=== PATIENT | female | born 1960 ===

== ENCOUNTER 2016-11-16 09:37 | Day surgery (SDC) | payer SELFPAY ==
[2016-11-16 10:15] VITALS: BMI 33.8
[2016-11-16] MEDS ORDERED: Midazolam 2 MG/2 ML VIAL ONE (10:51)
[2016-11-16] MEDS ORDERED: Lidocaine 1% Inj (20ml) ONE (10:59)
[2016-11-16 11:11] VITALS: O2SAT 100
[2016-11-16] MEDS ORDERED: Lactated Ringer's 1,000 ML IV SCH (11:45)
--- NOTE | 2016-11-16 12:29 | CP.SDSHP ---
Same Day Surgery H & P - History Proposed Procedure: Submandibular mass biopsy Pre-Op Diagnosis: Submandibular mass - Allergies Allergies: Allergies ciprofloxacin [From Cipro] Allergy (Verified 11/16/16 10:15) SHORTNESS OF BREATH ciprofloxacin HCl [From Cipro] Allergy (Verified 11/16/16 10:15) SHORTNESS OF BREATH Quinolones Allergy (Verified 07/08/16 13:03) SWELLING - Physical Exam Vital Signs: Vital Signs 11/16/16 11:08 Temperature 97 F L Pulse Rate 84 Respiratory 16 Rate Blood Pressure 157/94 H O2 Sat by Pulse 100 Oximetry Short Stay Discharge - Short Stay Discharge Admitting Diagnosis/Reason for Visit: SUBMANDIBULAR MASS Disposition: HOME/ ROUTINE Referrals: Eloise Alas MD [Primary Care Provider] -
--- NOTE | 2016-11-16 12:34 | PCM.SURG1 ---
Surgeon's Initial Post Op Note - Surgeon's Notes Surgeon: Erendira Passenger Service Agent: None Type of Anesthesia: IV Sedation, Local Pre-Operative Diagnosis: Right submandibular mass. Operative Findings: Right submandibular mass. Post-Operative Diagnosis: Right submandibular mass. Operation Performed: Right submandibular mass core biopsy. Specimen/Specimens Removed: Right submandibular mass core biopsy samples. Estimated Blood Loss: EBL {In ML}: 1 Date of Surgery/Procedure: 11/16/16 Time of Surgery/Procedure: 11:00
--- NOTE | 2016-11-16 13:43 | US ---
Right sub mandibular mass biopsy History: Right submandibular mass. Comparison: CT of the neck from 10/28/2016. Anesthesia: Local lidocaine. Moderate sedation provided by attending anesthesiologist. Procedure and findings: The procedure was explained to the patient in detail including relative risks and benefits, using a key punch teacher. Informed consent was obtained. The right neck region was prepped and draped in the usual sterile techniques. 1 percent lidocaine was used to anesthetize the skin and the underlying subcutaneous tissue. Initial ultrasound evaluation demonstrated a mildly dilated right internal jugular vein. This was seen in the prior CT. Additionally, there is a rounded heterogeneous mass in the anterior aspect of the right neck. A 17 gauge coaxial needle was introduced into the right neck mass. The inner stylet was removed. The spring-loaded biopsy system was then introduced and multiple 18 gauge core biopsy samples of the mass were obtained. The biopsy gun and the introducer needle were removed. Post biopsy images demonstrated no evidence of hematoma. The patient tolerated the procedure well. Impression: Successful ultrasound-guided core biopsy of the right neck mass.
[2016-11-17 16:01] VITALS: RESP 18
[2016-11-17 16:02] VITALS: BP 132/76; PULSE 76; TEMP 97.4
== END 2016-11-16 14:20 | disposition home or self-care (01) ==
LOC: H.OPSURG 09:37
PROVIDERS: ATTEND Specialist
DX: R22.1 Localized swelling, mass and lump, neck (principal); Z88.1 Allergy status to other antibiotic agents

== ENCOUNTER 2016-12-21 06:17 | Day surgery (SDC) | payer SELFPAY ==
[2016-12-15 09:17] VITALS: BMI 36.1
[2016-12-15 11:42] VITALS: RESP 18
[2016-12-21] MEDS ORDERED: Bupivacaine 0.5% Inj(30mL) ONE (07:10)
[2016-12-21] MEDS ORDERED: Lidocaine 2% w Epi 1:100,000 Inj IJ ONE (07:11)
[2016-12-21] MEDS ORDERED: Propofol 10 mg/ml Inj (20 ML) ONE (07:42)
[2016-12-21] MEDS ORDERED: Midazolam 2 MG/2 ML VIAL ONE (07:43)
[2016-12-21] MEDS ORDERED: Rocuronium 10 mg/ml (5 ml) ONE (07:43)
[2016-12-21] MEDS ORDERED: Neostigmine Methylsulfate 3mg/3ml Syringe IV ONE (07:44)
[2016-12-21] MEDS ORDERED: Succinylcholine 200 mg/10 ml Inj IV ONE (07:49)
--- NOTE | 2016-12-21 07:54 | CP.SDSHP ---
Same Day Surgery H & P - History Proposed Procedure: Excision Salivary gland Pre-Op Diagnosis: Salivary gland tumor - Previous Medical/Surgical History Cardiac: Hypertension Endocrine/Metabolic: Diabetes - Allergies Allergies: Allergies ciprofloxacin [From Cipro] Allergy (Verified 11/16/16 10:15) SHORTNESS OF BREATH ciprofloxacin HCl [From Cipro] Allergy (Verified 11/16/16 10:15) SHORTNESS OF BREATH Quinolones Allergy (Verified 07/08/16 13:03) SWELLING - Current Medications Current Medications: Valsartan, Carvedilol, Metformin, Omeprazole - Physical Exam General Appearance: NAD, Well nourished Vital Signs: Vital Signs 12/21/16 12/21/16 07:10 07:16 Temperature 98.2 F Pulse Rate 73 73 Respiratory 18 Rate Blood Pressure 143/72 O2 Sat by Pulse 100 Oximetry Mental Status: Alert & Oriented x3 Neuro: WNL Heart: WNL Lungs: WNL GI: WNL - Impression Impression: 55yo F here for excision of salivary gland Pt. Evaluated Today:Candidate for Anesthesia & Procedure: Yes - Date & Time Date: 12/21/16 Time: 07:54 Short Stay Discharge - Short Stay Discharge Admitting Diagnosis/Reason for Visit: D11.9 Disposition: HOME/ ROUTINE Medications: oxyCODONE/Acetaminophen [Percocet 5/325 mg Tab] 1 ea PO Q6H PRN #30 tab PRN Reason: Pain, Moderate (4-7) Referrals: Jair Stone MD [Primary Care Provider] - Follow-up: 1 week Additional Instructions (Diet, Activity): You may remove dressing tomorrow and you may shower, keep steri strips in place. You may resume regular diet and light activities. F/U with Dr. Hameed in office in 1week.
[2016-12-21] MEDS ORDERED: Lactated Ringer's 1,000 ML IV ONE (08:10)
[2016-12-21] MEDS ORDERED: Lactated Ringer's 500 ML IV ONE (09:40)
[2016-12-21] MEDS ORDERED: Lactated Ringer's 1,000 ML IV SCH (10:34)
[2016-12-21] MEDS ORDERED: HYDROmorphone 0.5 mg/0.5 ml ISec IVP PRN (10:35)
--- NOTE | 2016-12-21 12:25 | PCM.SURG1 ---
Surgeon's Initial Post Op Note - Surgeon's Notes Surgeon: Dr. Hameed Yard Cleaner: Dr. Montana PGY2; Dr Mcintosh PGY3 Type of Anesthesia: General Endo Anesthesia Administered By: Ainsley Pre-Operative Diagnosis: Salivary gland tumor (right) Operative Findings: same Post-Operative Diagnosis: same Operation Performed: Excision of Salivary gland (right) Specimen/Specimens Removed: submandibular gland Estimated Blood Loss: EBL {In ML}: 10 Blood Products Given: N/A Drains Used: No Drains Post-Op Condition: Good Date of Surgery/Procedure: 12/21/16 Time of Surgery/Procedure: 08:00
[2016-12-21 14:31] VITALS: O2SAT 95
[2016-12-21 17:45] VITALS: BP 147/81; PULSE 85; TEMP 98.1
--- NOTE | 2016-12-22 10:55 | OP ---
PROCEDURE DATE: 12/21/2016 OPERATIVE SUMMARY SURGEON: Maldonado Hameed MD. MORNING NEWS ANCHOR: Dr. Montana and Dr. Mcintosh. ANESTHESIA: General, Dr. Schmitz. 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 POSTOPERATIVE DIAGNOSIS: Right submandibular gland pleomorphic adenoma. PROCEDURE: Excision of right mandibular gland. DESCRIPTION OF OPERATION: With the patient in the supine position under adequate general anesthesia, the right face, skin, and upper neck were prepped and draped in the usual sterile manner. The patie nt had undergone a previous parotidectomy on the right side, and a 1 inch mass was palpable just ante rior to the anterior right branch of the parotid scar. An incision was continued parallel to the man dible continuing anteriorly from the previous scar, taken down through the platysmal layer. Upon pas sing through the platysmal plane, the salivary gland was identified with the mass at its most postero lateral aspect, and this was sharply and bluntly dissected away from the surrounding areolar tissue w ith the full thickness of the gland being from the surrounding tissue. The dissection cont inued anteriorly and medially with small attachments being either cauterized or clamped, divided, and ligated with 4-0 Vicryl ties until a margin of normal salivary gland was encountered a centimeter an terior to the palpable mass. At this point, the gland was clamped and divided. The remaining glandu lar tissue was suture-ligated with 3-0 Vicryl sutures, and the specimen was removed. The operative s ite was examined for hemostasis, and the incision was closed in 2 layers with the platysmal layer damien roximated with 3-0 Vicryl sutures, and subcuticular suture of 4-0 Monocryl and Steri-Strips. Dry tramaine rile dressing was applied with enough bulk to replace the space, and the patient tolerated the p rocedure well and transferred to the recovery room in stable condition. Estimated blood loss for the procedure was 10 mL. Maldonado Hameed MD cc: 58 TT: 12/22/2016 10:55:17 jn
== END 2016-12-21 17:45 | disposition home or self-care (01) ==
LOC: H.OPSURG 06:17
PROVIDERS: ATTEND Specialist
DX: D11.9 Benign neoplasm of major salivary gland, unspecified (principal); E11.9 Type 2 diabetes mellitus without complications; I10 Essential (primary) hypertension

== ENCOUNTER 2017-12-08 09:04 | Emergency (ER) | payer SELFPAY ==
[2017-12-08 09:11] VITALS: BMI 32.4
[2017-12-08 09:13] VITALS: BP 115/76; PULSE 89; RESP 18; TEMP 98.6; O2SAT 98
[2017-12-08] MEDS ORDERED: Sodium Chloride 0.9% 1,000 ML IV STA (09:42)
--- NOTE | 2017-12-08 09:47 | ED PDOC ---
HPI: Abdomen Time Seen by Provider: 12/08/17 09:21 Chief Complaint (Nursing): GI Problem Chief Complaint (Provider): Abdominal pain History Per: Patient History/Exam Limitations: no limitations Onset/Duration Of Symptoms: Days (x1) Current Symptoms Are (Timing): Still Present Location Of Pain/Discomfort: Diffuse Quality Of Discomfort: Cramping Associated Symptoms: Nausea, Vomiting, Diarrhea Additional Complaint(s): Karen Cast is a 56 year old female, with a past medical history of HTN and diabetes, who presents to the emergency department complaining of crampy abdominal pain associated with nausea, vomiting and diarrhea onset since yesterday. No headache and dizziness. Patient reports vomiting and diarrhea is non bloody, and states symptoms began after she ate a sandwich yesterday. Patient's daughter was seen in the ED yesterday for the same symptoms. Patient has started taking flagyl for symptoms and states she got the medications from her daughter who is a doctor in [facility]. She denies any fever, chills , chest pain, shortness of breath, numbness, tingling or urinary symptoms. No further medical complaints. PMD: Aubrey Tilley Past Medical History Reviewed: Historical Data, Nursing Documentation Vital Signs: Last Vital Signs Temp 98.6 F 12/08/17 09:12 Pulse 89 12/08/17 09:12 Resp 18 12/08/17 09:12 BP 115/76 12/08/17 09:12 Pulse Ox 98 12/08/17 09:57 - Medical History PMH: Diabetes, HTN - Surgical History Surgical History: No Surg Hx - Family History Family History: States: Unknown Family Hx - Home Medications Home Medications: Ambulatory Orders Medication Instructions Recorded Carvedilol [Coreg] 6.25 mg PO DAILY 11/16/16 Furosemide [Lasix] 40 mg PO PRN PRN 11/16/16 Pantoprazole [Protonix EC Tab] 40 mg PO DAILY 11/16/16 Valsartan/Hydrochlorothiazide 1 tab PO DAILY 11/16/16 [Valsartan-Hctz 320-12.5 mg Tab] metFORMIN [glucOPHAGE] 500 mg PO BID 11/16/16 Glucosa [place] 2Kcl/Chondroitin [place]itting[place] 1 each PO DAILY 12/21/16 [Glucosamine & Chondroitin Cap] Meloxicam [Mobic] 15 mg PO PRN PRN 12/21/16 Multivitamin [One Daily] 1 each PO DAILY 12/21/16 oxyCODONE/Acetaminophen [Percocet 1 ea PO Q6H PRN #30 tab 12/21/16 5/325 mg Tab] oxyCODONE/Acetaminophen [Percocet 1 tab PO Q4 PRN 12/21/16 5/325 mg Tab] - Allergies Allergies/Adverse Reactions: Allergies Allergy/AdvReac Type Severity Reaction Status Date / Time ciprofloxacin [From Cipro] Allergy SHORTNESS Verified 12/08/17 09:21 OF BREATH ciprofloxacin HCl Allergy SHORTNESS Verified 12/08/17 09:21 [From Cipro] OF BREATH Quinolones Allergy SWELLING Verified 12/08/17 09:21 Review of Systems ROS Statement: Except As Marked, All Systems Reviewed And Found Negative Constitutional: Negative for: Fever, Chills Cardiovascular: Negative for: Chest Pain Respiratory: Negative for: Shortness of Breath Gastrointestinal: Positive for: Nausea, Vomiting (non bloody), Abdominal Pain, Diarrhea (non bloody) Genitourinary Female: Negative for: Dysuria, Frequency, Incontinence, Hematuria Neurological: Negative for: Numbness (tingling) Physical Exam - Reviewed Nursing Documentation Reviewed: Yes Vital Signs Reviewed: Yes - Physical Exam Appears: Positive for: Non-toxic, No Acute Distress Head Exam: Positive for: ATRAUMATIC, NORMAL INSPECTION, NORMOCEPHALIC Skin: Positive for: Normal Color, Warm, Dry Eye Exam: Positive for: Normal appearance, EOMI, PERRL Neck: Positive for: Painless ROM Cardiovascular/Chest: Positive for: Regular Rate, Rhythm. Negative for: Murmur Respiratory: Positive for: Normal Breath Sounds. Negative for: Respiratory Distress Gastrointestinal/Abdominal: Positive for: Tenderness (mild tenderness diffused) Back: Positive for: Normal Inspection. Negative for: L CVA Tenderness, R CVA Tenderness, Vertebral Tenderness Extremity: Positive for: Normal ROM (all extremities). Negative for: Tenderness , Deformity, Swelling Neurologic/Psych: Positive for: Alert, Oriented. Negative for: Motor/Sensory Deficits - ECG O2 Sat by Pulse Oximetry: 98 (RA) Pulse Ox Interpretation: Normal - Progress ED Course And Treament: 1027: Pt. is aaox3. Pain free. Tolerated po. Has capacity to make decisions. Pt. refusing to stay for any treatment or evaluation. Will go against medical advice. Aware of possible or decreased functioning from not complete tx and eval. [id number] review scheduling coordinator used to translate. Medical Decision Making Medical Decision Making: Initial Impression: abdominal pain Initial Plan: --BMP --Lipase --CBC w/ differential --Bentyl 10 mg PO --Sodium Chloride 1,000 ml IV 1,000 mls/hr --Zofran ODT 4 mg IV --Reevaluation Scribe Attestation: Documented by Madhav Pagan, acting as a scribe for Scott Moctezuma MD Provider Scribe Attestation: All medical record entries made by the Scribe were at my direction and personally dictated by me. I have reviewed the chart and agree that the record accurately reflects my personal performance of the history, physical exam, medical decision making, and the department course for this patient. I have also personally directed, reviewed, and agree with the discharge instructions and disposition. Disposition - Clinical Impression Clinical Impression: Abdominal pain - Patient ED Disposition Is Patient to be Admitted: No - Disposition Disposition: Against Medical Advice Disposition Time: 10:29 Condition: STABLE Additional Instructions: You are going against medical advise. You are aware of possible or decreased functioning. Return right away for further evaluation and treatment. We do not know what is causing your abdominal pain. Ests yendo en contra de consejo mdico. Usted es consciente de la posible muerte o disminucin del funcionamiento. Regrese de inmediato para yakelin evaluaci n y tratamiento adicional. No sabemos qu est causando whittington dolor abdominal. Instructions: Acute Abdomen (Belly Pain) Print Language: SINHALA
== END 2017-12-08 10:55 | disposition left against medical advice (07) ==
LOC: H.ER 09:04
DX: R10.9 Unspecified abdominal pain (principal); E11.9 Type 2 diabetes mellitus without complications; I10 Essential (primary) hypertension; Z79.84 Long term (current) use of oral hypoglycemic drugs

== ENCOUNTER 2017-12-08 12:07 | Emergency (ER) | payer SELFPAY ==
[2017-12-08 12:09] VITALS: BMI 32.4
[2017-12-08 12:14] VITALS: BP 126/79; PULSE 88; RESP 20; TEMP 98.2; O2SAT 99
[2017-12-08] MEDS ORDERED: Sodium Chloride 0.9% 1,000 ML IV STA (12:29)
--- NOTE | 2017-12-08 12:33 | ED PDOC ---
HPI: Abdomen Time Seen by Provider: 12/08/17 12:28 Chief Complaint (Nursing): Abdominal Pain Chief Complaint (Provider): Abdominal pain History Per: Patient History/Exam Limitations: no limitations Onset/Duration Of Symptoms: Days (x1) Quality Of Discomfort: Cramping Associated Symptoms: Nausea, Vomiting (non bloody), Diarrhea (non bloody). denies: Fever, Chills, Chest Pain, Urinary Symptoms Additional Complaint(s): Karen Cast is a 56 year old female, with a past medical history of HTN and diabetes, who presents to the emergency department complaining of crampy abdominal pain associated with nausea, vomiting and diarrhea onset since yesterday. Patient reports vomiting and diarrhea is non bloody, and states symptoms began after she ate a sandwich yesterday. Patient's daughter was seen in the ED yesterday for the same symptoms. Patient has started taking flagyl for symptoms and states she got the medications from her daughter who is a doctor in [facility]. She denies any fever, chills, headache, dizziness , chest pain, shortness of breath, numbness, tingling or urinary symptoms. No further medical complaints. Patient left AMA today but returned to the ED after seeing Dr. Hameed for her neck. PMD: Aubrey Tilley Past Medical History Reviewed: Historical Data, Nursing Documentation, Vital Signs Vital Signs: Last Vital Signs Temp 98.2 F 12/08/17 12:12 Pulse 88 12/08/17 12:12 Resp 20 12/08/17 12:12 BP 126/79 12/08/17 12:12 Pulse Ox 99 12/08/17 12:39 - Medical History PMH: Diabetes, HTN - Surgical History Surgical History: No Surg Hx - Family History Family History: States: Unknown Family Hx - Social History Current smoker - smoking cessation education provided: No Alcohol: None Drugs: Denies - Home Medications Home Medications: Ambulatory Orders Medication Instructions Recorded Carvedilol [Coreg] 6.25 mg PO DAILY 11/16/16 Furosemide [Lasix] 40 mg PO PRN PRN 11/16/16 Pantoprazole [Protonix EC Tab] 40 mg PO DAILY 11/16/16 Valsartan/Hydrochlorothiazide 1 tab PO DAILY 11/16/16 [Valsartan-Hctz 320-12.5 mg Tab] metFORMIN [glucOPHAGE] 500 mg PO BID 11/16/16 Glucosa [place] 2Kcl/Chondroitin Whitting[place] 1 each PO DAILY 12/21/16 [Glucosamine & Chondroitin Cap] Meloxicam [Mobic] 15 mg PO PRN PRN 12/21/16 Multivitamin [One Daily] 1 each PO DAILY 12/21/16 oxyCODONE/Acetaminophen [Percocet 1 ea PO Q6H PRN #30 tab 12/21/16 5/325 mg Tab] oxyCODONE/Acetaminophen [Percocet 1 tab PO Q4 PRN 12/21/16 5/325 mg Tab] Dicyclomine [Dicyclomine HCl] 10 mg PO BID PRN 5 Days cap 12/08/17 Ondansetron [Zofran] 4 mg PO Q8H PRN #6 tab 12/08/17 - Allergies Allergies/Adverse Reactions: Allergies Allergy/AdvReac Type Severity Reaction Status Date / Time ciprofloxacin [From Cipro] Allergy SHORTNESS Verified 12/08/17 09:21 OF BREATH ciprofloxacin HCl Allergy SHORTNESS Verified 12/08/17 09:21 [From Cipro] OF BREATH Quinolones Allergy SWELLING Verified 12/08/17 09:21 Review of Systems ROS Statement: Except As Marked, All Systems Reviewed And Found Negative Constitutional: Negative for: Fever, Chills Cardiovascular: Negative for: Chest Pain Respiratory: Negative for: Shortness of Breath Gastrointestinal: Positive for: Nausea, Vomiting (non bloody), Abdominal Pain ( crampy), Diarrhea (non bloody) Genitourinary Female: Negative for: Dysuria, Frequency, Incontinence Neurological: Negative for: Numbness (tingling), Headache, Dizziness Physical Exam - Reviewed Nursing Documentation Reviewed: Yes Vital Signs Reviewed: Yes - Physical Exam Appears: Positive for: Non-toxic, No Acute Distress Head Exam: Positive for: ATRAUMATIC, NORMAL INSPECTION, NORMOCEPHALIC Skin: Positive for: Normal Color, Warm, Dry Eye Exam: Positive for: Normal appearance, EOMI, PERRL Neck: Positive for: Painless ROM Cardiovascular/Chest: Positive for: Regular Rate, Rhythm. Negative for: Murmur Respiratory: Positive for: Normal Breath Sounds. Negative for: Respiratory Distress Gastrointestinal/Abdominal: Positive for: Tenderness (mild diffused) Back: Positive for: Normal Inspection. Negative for: L CVA Tenderness, R CVA Tenderness, Vertebral Tenderness Extremity: Positive for: Normal ROM (all extremities). Negative for: Deformity , Swelling Neurologic/Psych: Positive for: Alert, Oriented. Negative for: Motor/Sensory Deficits - Laboratory Results Result Diagrams: 12/08/17 12:53 12/08/17 12:53 Interpretation Of Abn Labs: no acute - ECG O2 Sat by Pulse Oximetry: 99 (RA) Pulse Ox Interpretation: Normal - Progress ED Course And Treament: 1444: Stable. AAOx3. Pain free. Tolerated PO. Fu with pcp. Medical Decision Making Medical Decision Making: Initial Impression: abdominal pain Initial Plan: --CMP --Lipase --CBC w/ differential --Bentyl 10 mg PO --Sodium Chloride 1,000 ml IV 1,000 mls/hr --Zofran Inj 4 mg IV --Reevaluation Scribe Attestation: Documented by Madhav Pagan, acting as a scribe for Scott Moctezuma MD Provider Scribe Attestation: All medical record entries made by the Scribe were at my direction and personally dictated by me. I have reviewed the chart and agree that the record accurately reflects my personal performance of the history, physical exam, medical decision making, and the department course for this patient. I have also personally directed, reviewed, and agree with the discharge instructions and disposition. Disposition - Clinical Impression Clinical Impression: Vomiting, Diarrhea - Patient ED Disposition Is Patient to be Admitted: No Counseled Patient/Family Regarding: Studies Performed, Diagnosis, Need For Followup - Disposition Referrals: [facility] [Outside] - 12/09/17 Disposition: Routine/Home Disposition Time: 14:45 Condition: STABLE Additional Instructions: Return if not better in 3 days. Prescriptions: Dicyclomine [Dicyclomine HCl] 10 mg PO BID PRN 5 Days cap PRN Reason: Diarrhea Ondansetron [Zofran] 4 mg PO Q8H PRN #6 tab PRN Reason: Nausea/Vomiting Instructions: Nausea and Vomiting, Adult (DC), Diarrhea in Adolescents and Adults Forms: [facility] (Swedish) Print Language: PORTUGUESE
[2017-12-08 12:56] LABS: BASO % 0.5 % (0.0-2.0); EOS % 0.1 % (0.0-4.0); HEMOGLOBIN 12.9 g/dL (12.0-16.0); LYMPH # 0.7 K/uL (1.0-4.3); LYMPH % 13.1 % (20.0-40.0); MEAN CELL VOLUME 80.7 fl (81.0-99.0); MEAN CORPUSCULAR HEMOGLOBIN 26.9 pg (27.0-31.0); MEAN CORPUSCULAR HGB CONC 33.4 g/dL (33.0-37.0); MEAN PLATELET VOLUME 8.8 fl (7.2-11.7); MONO # 0.4 K/uL (0.0-0.8); MONO % 7.9 % (0.0-10.0); NEUT # 4.2 K/uL (1.8-7.0); NEUT % 78.4 % (50.0-75.0); NRBC % 0.1 % (0.0-0.0); RBC 4.81 Mil/uL (3.80-5.20); RED CELL DISTRIBUTION WIDTH 15.2 % (11.5-14.5); WHITE BLOOD COUNT 5.4 K/uL (4.8-10.8)
[2017-12-08 13:15] LABS: ALB/GLOB RATIO 1.1 (1.0-2.1); ALBUMIN 4.4 g/dL (3.5-5.0); ALT/SGPT 36 U/L (9-52); AST/SGOT 30 U/L (14-36); BLOOD UREA NITROGEN 14 mg/dl (7-17); CALCIUM 9.6 mg/dL (8.4-10.2); GFR AFRICAN-AMERICAN > 60; GFR NON-AFRICAN AMERICAN > 60; LIPASE 53 U/L (23-300)
== END 2017-12-08 15:07 | disposition home or self-care (01) ==
LOC: H.ER 12:07
DX: R11.10 Vomiting, unspecified (principal); E11.9 Type 2 diabetes mellitus without complications; I10 Essential (primary) hypertension; Z79.84 Long term (current) use of oral hypoglycemic drugs
CPT/HCPCS: 80053; 83690; 85025; 96361; 96374; 96375; 99282; J1885; J2405; J7040